=== PATIENT | male | born 1995 | race Caucasian/White ===

== ENCOUNTER 2020-10-31 21:33 | Emergency (ER) | payer OTHER, SELFPAY ==
--- NOTE | ~2020-10-31 | XR_ITS ---
EXAMINATION: CR HAND, RIGHT CLINICAL INFORMATION: Question foreign body. Question fracture of thumb. Focal soft tissue swelling of the thumb. COMPARISON: Right wrist films dated 08/05/2012 and 05/29/2012. TECHNIQUE: PA, lateral, and oblique views of the right hand. FINDINGS: There is prominent focal soft tissue swelling over the dorsum of the first interphalangeal joint. No underlying radiopaque foreign body is seen in the soft tissues and the bony structures are intact with no acute fracture, dislocation or significant degenerative change seen. There is an old ununited ulnar styloid fracture. Bony structures are otherwise unremarkable. XR/XR hand RT 2V IMPRESSION: Prominent soft tissue swelling over the first interphalangeal joint without radiopaque foreign body or acute fracture seen.
[2020-10-31 21:41] VITALS: BP 138/73; PULSE 84; RESP 16; TEMP 36.6; O2SAT 100; BMI 32.7
[2020-10-31] MEDS: Lidocaine HCl 1 % MPF 5 ML VIAL SUBCUT (22:43)
--- NOTE | 2020-10-31 22:51 | ED.WOUNDLAC ---
HPI - Wound/Laceration General Chief Complaint: Wound/Laceration Stated Complaint: fall Time Seen by Provider: 10/31/20 21:46 History of Present Illness HPI narrative: Patient is a 24-year-old male status post fall. Notice a laceration to the right IP thumb area. No head injury. No nausea no vomiting. No systemic complaints. Related Data Previous Rx's Medication Instructions Recorded ibuprofen 400 mg PO Q6H PRN #20 tab 10/31/20 Allergies Allergy/AdvReac Type Severity Reaction Status Date / Time nickel [NICKEL] Allergy Unknown UNKNOWN Unverified 04/15/20 16:32 nickel Allergy Unknown Uncoded 08/05/12 00:00 Review of Systems Review of Systems: Constitutional: No Weight loss, No Fever, No Chills, No Night Sweats, No Fatigue, No Malaise ENT/Mouth: No Hearing loss, No Ear Pain, No Nasal Congestion, No Sinus Pain, No Hoarseness, No sore throat, No Rhinorrhea, No Swallowing Difficulty Eyes: No Eye Pain, No Swelling, No Redness, No Foreign Body, No Discharge, No Vision Changes Cardiovascular: No Chest Pain, No SOB, No Dyspnea on Exertion, No Orthopnea, No Edema, No Palpitations Respiratory: No Cough, No Sputum, No Wheezing, No Smoke Exposure, No Dyspnea Gastrointestinal: No Nausea, No Vomiting, No Diarrhea, No Constipation, No abdominal Pain, No Hematochezia, No Melena Genitourinary: no irregular bleeding, No Dysuria, No Urinary Frequency, No Hematuria, No Urinary Incontinence, No Urgency, No Flank Pain, No Urinary Flow Changes, No Hesitancy Musculoskeletal: No joint pain, No Myalgias, No Joint Swelling Skin: Positive laceration to right thumb Neuro: No Weakness, No Numbness, No Paresthesias, No Loss of Consciousness, No Dizziness, No Headache Psych: No Anxiety/Panic, No Depression, No SI/HI/AH/VH, No Social Issues, Heme/Lymph: No Bruising, No Bleeding,No Lymphadenopathy Endocrine: No Polyuria, No Polydipsia, No Temperature Intolerance [facility] Past Medical History Medical History No active medical problems Social History Social History Advance Directives: No Advance Directives Information Provided: Yes Physical Exam Vital Signs: Vital Signs: Last Vital Signs Temp 97.9 F 10/31/20 21:41 Pulse 84 10/31/20 21:41 Resp 16 10/31/20 21:41 BP 138/73 10/31/20 21:41 Pulse Ox 100 10/31/20 21:41 Body Mass Index 32.7 Appearance: Alert. Oriented X3. No acute distress. Eyes: Pupils equal, round and reactive to light. ENT: Pharynx normal. Neck: Normal inspection. Neck supple. No lymph nodes noted. No crepitus CVS: Normal heart rate and rhythm. Pulses normal. Normal S1 and S2 Respiratory: No respiratory distress. Breath sounds normal. No Wheezing. No rales Abdomen: Soft and nontender. No rigidity. No distention. good BS x4 Skin: Positive laceration that is approximately 3 cm in size over the left thumb. No tendon laceration noted. Patient finger moved through the full range of motion. There is good flexion and extension at the IP joint. There is good opposition of the thumb noted. Extremities: No lower extremity edema. Neurovascular intact to all extremities. No Lacerations. No Rash Neuro: Oriented X 3. No motor deficit. No sensory deficit. Moving all extermities. No slurred speech Procedures Laceration Laceration 1: Site: upper extremity and hand (Positive 3 cm laceration to the antibiotic right thumb inter digit area on the dorsum side) Side (If applicable): right Description: linear Depth: simple, single layer Local Anesthetic: lidocaine 1% Pre-repair: wound explored and irrigated extensively Skin layer closed with: nylon Size (cm): 5-0 Number of sutures: 3 Technique: simple, interrupted Subcutaneous layer closed with: other (Nylon) Size: 5-0 MDM - Wound/Laceration MDM Narrative Medical decision making narrative: Last tetanus shot was 3 months ago. Patient wound was closed. Will discharge patient home. Suture removal in approximately 10 days. Patient's x-ray was grossly negative for any foreign bodies. No fracture noted. Discharge Plan Discharge Clinical Impression: Laceration, Sprain of finger Patient Disposition: Home, Self-Care Instructions: Finger Laceration (ED) Prescriptions: New ibuprofen 400 mg tablet 400 mg PO Q6H PRN (Reason: pain) Qty: 20 RF: 0 Referrals: Felder,Sindy Lomas MD [Emergency Provider] - 10 days Physician,None [Primary Care Provider] - 2 days
--- NOTE | 2020-10-31 23:04 | PC.NURSE ---
Thumb dresses per provider
== END 2020-10-31 23:05 | disposition home or self-care (01) ==
PROVIDERS: Emergency Provider Emergency Medicine Emergency Medical Services
DX: S61.011A Laceration without foreign body of right thumb without damage to nail, initial encounter (principal); S63.601A Unspecified sprain of right thumb, initial encounter; W01.0XXA Fall on same level from slipping, tripping and stumbling without subsequent striking against object, initial encounter; Y93.9 Activity, unspecified; Y92.9 Unspecified place or not applicable; Y99.9 Unspecified external cause status
CPT/HCPCS: 12002; 73120; 99284

== ENCOUNTER 2020-11-10 13:36 | Emergency (ER) | payer OTHER, SELFPAY ==
--- NOTE | 2020-11-10 14:57 | PC.NURSE ---
2ND CALL TO [facility], NOT IN [facility]
== END 2020-11-10 15:39 | disposition left against medical advice (07) ==
PROVIDERS: Emergency Provider Emergency Medicine
DX: Z48.02 Encounter for removal of sutures (principal)
CPT/HCPCS: 99281

== ENCOUNTER 2021-11-22 04:45 | Emergency (ER) | payer OTHER, SELFPAY ==
--- NOTE | ~2021-11-22 | CT_ITS ---
EXAMINATION: CT ABDOMEN AND PELVIS WITHOUT CONTRAST CLINICAL INFORMATION: Left lower abdominal pain going to left flank. COMPARISON: None TECHNIQUE: Multidetector volumetric imaging was performed from the superior aspect of the liver through the pubic symphysis. Sagittal and coronal reformatted images were obtained on the technologist's workstation. This CT examination was performed using dose optimization techniques as appropriate, variously including the following: *Automated exposure control *Adjustment of mA and/or kV according to patient size (this includes techniques or standardized protocols for targeted exams where dose is matched to indication/reason for exam; i.e. extremities or head) *Use of iterative reconstruction technique DLP: 611 mGy-cm FINDINGS: LUNG BASES: The visualized lung bases are unremarkable. LIVER, GALLBLADDER, AND BILIARY TREE: The liver is normal in size, shape, and attenuation. No focal hepatic lesion or biliary ductal dilatation is present. The gallbladder is unremarkable with no evidence of radiopaque gallstones, gallbladder wall thickening, or obvious pericholecystic inflammatory changes. PANCREAS: Unremarkable. SPLEEN: Unremarkable. ADRENAL GLANDS: Unremarkable. KIDNEYS AND URETERS: The kidneys are normal in appearance. No hydronephrosis or perinephric inflammatory changes. No urolithiasis. No ureterectasis. BLADDER: Physiologically decompressed. No bladder calculi. GASTROINTESTINAL TRACT: No colonic diverticulosis. Normal appendix. No free intraperitoneal fluid or gas collections. No intestinal dilatation or mural thickening. Normal sigmoid and small bowel mesentery is. ABDOMINAL WALL: No significant hernia is appreciated. LYMPH NODES: Normal. VASCULAR: Unremarkable. PELVIC VISCERA: Unremarkable. OSSEOUS STRUCTURES: Unremarkable. CT/CT abdomen pelvis wo con IMPRESSION: Unenhanced CT of abdomen and pelvis without evidence of acute abnormalities. No urolithiasis. No hydronephrosis or perinephric inflammatory changes. No diverticulosis. Normal appendix.
[2021-11-22 04:54] VITALS: BP 133/93; BP 137/90; PULSE 83; PULSE 86; RESP 18; TEMP 37.2; O2SAT 99; BMI 28.8
--- NOTE | 2021-11-22 05:04 | ED.ABDPAIN ---
HPI - Abdominal Pain General Chief Complaint: Abdominal Pain Stated Complaint: left side abd pain Time Seen by Provider: 11/22/21 05:04 Source: patient Mode of arrival: ambulatory Limitations: no limitations History of Present Illness HPI narrative: After having a BM, patient developed left lower abdominal pain now radiating into the back. Denies diarrhea, fever, no dysuria, no hematuria. Has had the pain but never saw a doctor for it. MD elicited complaint: abdominal pain Onset (ago): hour(s) Pain Consistency: constant Location: LUQ Quality: cramping and sharp Radiation: L flank Exacerbating factors: bowel movement Relieving factors: nothing Context: foreign travel Associated symptoms: nausea and vomiting Related Data Previous Rx's Medication Instructions Recorded ibuprofen 400 mg tablet 400 mg PO Q6H PRN #20 tab 10/31/20 naproxen 500 mg tablet (Naprosyn) 500 mg PO BID #20 tab 11/22/21 ondansetron 4 mg disintegrating 4 mg PO Q8H 4 Days #12 tab 11/22/21 tablet tamsulosin 0.4 mg capsule (Flomax) 0.4 mg PO DAILY #20 cap 11/22/21 Allergies Allergy/AdvReac Type Severity Reaction Status Date / Time nickel [NICKEL] Allergy Unknown UNKNOWN Unverified 04/15/20 16:32 nickel Allergy Unknown Uncoded 08/05/12 00:00 Review of Systems Constitutional: Reports no additional constitutional complaints Eyes: Reports no additional eye complaints Denies dizziness Cardiovascular: Reports no additional cardiovascular complaints Respiratory: Reports as per HPI Gastrointestinal: Reports no additional gastrointestinal complaints Musculoskeletal: Reports no additional musculoskeletal complaints Skin/Breast: Denies rash Reports system reviewed and no additional complaints, except as documented, Denies dizziness and Denies Sensory deficit (Neuro) Psychiatric: Denies anxiety COUNTS INCLUDE 234 BEDS AT THE [facility] Past Medical History Medical History No active medical problems Social History Social History Alcohol intake: unknown Advance Directives: No Physical Exam ED Vital Signs: Vital Signs - 24 hr 11/22/21 04:54 11/22/21 06:17 Temperature 98.9 F 98.7 F Pulse Rate 83 85 Respiratory Rate 18 19 Blood Pressure 137/90 H 124/72 Pulse Oximetry 99 99 BMI result Body Mass Index 28.8 Const Other: patient in pain General: healthy appearing Nutritional Appearance: average body habitus Orientation/consciousness: oriented to person and patient oriented x3 Limitations: no limitations HENMT Head: Yes normal to inspection Ears: external ears normal General nose exam: Normal external nose present Mouth: Normal oral and palatal mucosa present and oropharynx normal Throat: Yes posterior oropharynx normal Eyes General: appearance normal, both eyes and all related structures Neck Neck: Yes normal visual inspection Chest Chest palpation & inspection: normal inspection of the chest Resp Auscultation: clear to auscultation bilaterally Cardio Jugular venous distension: no JVD Rate: regular rate Rhythm: regular rhythm Heart sounds: S1 normal heart sound present and S2 normal heart sound present GI Inspection: Yes normal to inspection Palpation (GI): Soft to palpation, nontender and No hepatosplenomegaly present Auscultation: normal bowel sounds Back/Spine/Pelvis Other: left CVAT Skin General skin exam: no rashes or lesions noted Neuro General: oriented to person and patient oriented x3 Cranial nerves: Yes CN's II-XII intact bilaterally Motor exam (neuro): 5/5 motor strength present throughout Sensory Exam: No Sensory deficit (Neuro) Extrem General: Yes normal to inspection Psych Appearance: grossly normal Course Reevaluation(s) Reevaluation #1: patient with hematuria but no stone seen on CT. Will treat with NSAIDS, zofran and flomax. Impression is renal colic Time: 06:59 MDM - Abdominal Pain Lab Data Result diagrams: 11/22/21 05:36 11/22/21 05:36 Labs: Lab Results 11/22/21 11/22/21 11/22/21 Range/Units 05:25 05:36 05:36 WBC 6.8 (4.8-10.8) X10*3/uL RBC 5.25 (4.60-5.80) X10*6/uL Hgb 15.7 (14.0-18.0) g/dl Hct 45.6 (42.0-52.0) % MCV 86.9 (80.0-98.0) fL MCH 29.9 (27.0-33.0) pg MCHC 34.4 (31.0-36.0) g/dl RDW 12.9 (11.0-16.0) % Plt Count 213 (160-400) X10*3/uL MPV 9.2 L (9.4-12.4) fL Immature Gran % (Auto) 0.3 (0.0-0.4) % Neut % (Auto) 69.6 (45-73) % Lymph % (Auto) 19.1 L (20-40) % Boyle % (Auto) 8.8 (2-11) % Eos % (Auto) 1.8 (0-4) % Baso % (Auto) 0.4 (0-2) % Lymph # (Auto) 1.3 (1.2-4.9) X10*3/uL Boyle # (Auto) 0.6 (0.1-1.2) X10*3/uL Eos # (Auto) 0.1 (0.0-0.4) X10*3/uL Baso # (Auto) 0.0 (0.0-0.2) X10*3/uL Abs Immat Gran (auto) 0.02 (0.00-0.03) X10*3/uL Absolute Neuts (auto) 4.7 (2.0-8.3) x10*3/uL Absolute Nucleated RBC 0.000 (0.0-0.012) X10*3/uL Nucleated RBC % (auto) 0.0 (0.0-0.2) /100WBC Sodium 139 (135-145) mmol/L Potassium 4.0 (3.3-5.1) mmol/L Chloride 104 (96-108) mmol/L Carbon Dioxide 29 (22-29) mmol/L Anion Gap 10 L (12-20) BUN 17 H (9-16) mg/dL Creatinine 1.09 (0.5-1.4) mg/dL Estim Creat Clear Calc 114.0 Estimated GFR > 60 Random Glucose 116 H (60-115) mg/dL Calcium 9.5 (8.4-10.2) mg/dL Urine Color YELLOW Urine Appearance CLEAR Urine pH 5.5 (5.0-8.0) Ur Specific [place] >= 1.030 H (1.005-1.025) Urine Protein 1+ H (NEG-TRACE) MG/DL Urine Glucose (UA) NEG (NEG) MG/DL Urine Ketones NEG (NEG) MG/DL Urine Blood 3+ H (NEG) Urine Nitrite NEG (NEG) Ur Leukocyte Esterase NEG (NEG) Urine RBC 10-14 H (0) /HPF Urine WBC 1-4 (0-4) /HPF Ur Squamous Epith Cells 1+ /LPF Urine Bacteria 1+ /LPF Urine Mucus 1+ /LPF Discharge Plan Discharge Clinical Impression: Renal colic on left side Patient Disposition: Home, Self-Care Instructions: Renal Colic (ED) Prescriptions: New ondansetron 4 mg tablet,disintegrating 4 mg PO Q8H 4 Days Qty: 12 0RF naproxen [Naprosyn] 500 mg tablet 500 mg PO BID Qty: 20 0RF tamsulosin [Flomax] 0.4 mg capsule 0.4 mg PO DAILY Qty: 20 0RF No Action ibuprofen 400 mg tablet 400 mg PO Q6H PRN (Reason: pain) Qty: 20 0RF Referrals: Patrick Matthews MD [Physician] - 1 week
[2021-11-22 05:30] LABS: Appearance Urine CLEAR; Color Urine YELLOW; Glucose Urine UA NEG (NEG); Leukocyte Esterase Urine NEG (NEG); Nitrite Urine NEG (NEG); PH 5.5 (5.0-8.0); Specific Gravity - Urine >= 1.030 (1.005-1.025); UACC Culture Trigger NO; Urine Blood 3+ (NEG); Urine Ketones NEG (NEG); Urine Protein 1+ MG/DL (NEG-TRACE)
[2021-11-22 05:37] LABS: Bacteria Urine 1+ /LPF; Mucus Urine 1+ /LPF; Squamous Epithelial Cell Urine 1+ /LPF
[2021-11-22] MEDS: 0.9 % Sodium Chloride 1,000 ML 999 ML IVCONT ×2 (05:43→06:52)
[2021-11-22] MEDS: ondansetron HCL 4 MG/2 ML VIAL IVPUSH (05:44)
[2021-11-22] MEDS: Ketorolac Tromethamine 30 MG/ML VIAL IVPUSH (05:44)
[2021-11-22 05:46] LABS: MANUAL DIFF FLAG NO
[2021-11-22 05:48] LABS: Basophils Percent Auto 0.4 % (0-2); Eosinophils Absolute Auto 0.1 X10*3/uL (0.0-0.4); Eosinophils Percent Auto 1.8 % (0-4); Hematocrit 45.6 % (42.0-52.0); Hemoglobin 15.7 g/dl (14.0-18.0); Imm Gran Abs Auto 0.02 X10*3/uL (0.00-0.03); Imm Gran Pct Auto 0.3 % (0.0-0.4); Lymphocytes Absolute Auto 1.3 X10*3/uL (1.2-4.9); Lymphocytes Percent Auto 19.1 % (20-40); Mean Corpuscular HGB Conc 34.4 g/dl (31.0-36.0); Mean Corpuscular Hemoglobin 29.9 pg (27.0-33.0); Mean Corpuscular Volume 86.9 fL (80.0-98.0); Mean Platelet Volume 9.2 fL (9.4-12.4); Monocytes Absolute Auto 0.6 X10*3/uL (0.1-1.2); Monocytes Percent Auto 8.8 % (2-11); Neutrophils Absolute Auto 4.7 x10*3/uL (2.0-8.3); Neutrophils Percent Auto 69.6 % (45-73); Platelet Count 213 X10*3/uL (160-400); Red Blood Count 5.25 X10*6/uL (4.60-5.80); Red Cell Distribution Width 12.9 % (11.0-16.0); White Blood Count 6.8 X10*3/uL (4.8-10.8)
[2021-11-22 06:09] LABS: Anion Gap 10 (12-20); Blood Urea Nitrogen 17 mg/dL (9-16); Calcium 9.5 mg/dL (8.4-10.2); Carbon Dioxide 29 mmol/L (22-29); Chloride 104 mmol/L (96-108); Estimated Glomerular Filt Rate > 60; Glucose Random 116 mg/dL (60-115); Sodium 139 mmol/L (135-145)
[2021-11-22 06:17] VITALS: BP 124/72; PULSE 85; RESP 19; TEMP 37.1; O2SAT 99
== END 2021-11-22 07:10 | disposition home or self-care (01) ==
PROVIDERS: Emergency Provider Emergency Medicine
DX: N23 Unspecified renal colic (principal)
CPT/HCPCS: 36415; 74176; 80048; 81001; 85025; 96361; 96374; 96375; 99283; 99284; J1885; J2405

== ENCOUNTER 2022-06-15 16:39 | Emergency (ER) | payer OTHER, SELFPAY ==
--- NOTE | ~2022-06-15 | XR_ITS ---
EXAMINATION: X-RAY RIGHT HAND/WRIST CLINICAL INFORMATION: Injury/crush. COMPARISON: Radiograph of the right hand for 10/31/2020. TECHNIQUE: 3 views of the right hand/wrist. FINDINGS: No acute fracture or subluxation. Mild deformity of the head of the fifth metacarpal bone is unchanged compared to 10/31/2020. Carpal rows are maintained. There is soft tissue swelling along the dorsal surface of the hand at the level of the distal metacarpal bones, visualized on the lateral view. XR/XR hand wrist RT IMPRESSION: 1. Soft tissue swelling along the dorsal surface of the hand at the level of the distal metacarpal bones. 2. No acute fracture or subluxation.
[2022-06-15 16:44] VITALS: BP 137/96; PULSE 110; RESP 18; TEMP 37.3; O2SAT 98; BMI 32.5
--- NOTE | 2022-06-15 16:45 | ED.UPPEXIN ---
HPI - Extremity Injury (Upper) General Chief Complaint: Extremity Injury, Upper Stated Complaint: right hand inj Time Seen by Provider: 06/15/22 16:59 Related Data Previous Rx's Medication Instructions Recorded ibuprofen 400 mg tablet 400 mg PO Q6H PRN pain #20 tabs 10/31/20 naproxen 500 mg tablet (Naprosyn) 500 mg PO BID #20 tabs 11/22/21 ondansetron 4 mg disintegrating 4 mg PO Q8H 4 days #12 tabs 11/22/21 tablet tamsulosin 0.4 mg capsule (Flomax) 0.4 mg PO DAILY #20 caps 11/22/21 Allergies Allergy/AdvReac Type Severity Reaction Status Date / Time nickel [NICKEL] Allergy Unknown UNKNOWN Unverified 04/15/20 16:32 nickel Allergy Unknown Uncoded 08/05/12 00:00 [facility] Past Medical History Medical History No active medical problems Social History Social History Alcohol intake: unknown Advance Directives: No Advance Directives Information Provided: Yes Physical Exam Vital Signs: Vital Signs: Last Vital Signs Temp 99.1 F 06/15/22 16:44 Pulse 110 H 06/15/22 16:44 Resp 18 06/15/22 16:44 BP 137/96 H 06/15/22 16:44 Pulse Ox 98 06/15/22 16:44 BMI result Body Mass Index 32.5 Course Course Course Narrative: RME--26yo M c/o bilateral hand pain and abrasions > right s/p hands being trampled with football cleats while playing football [employer]. Last tetanus unknown +R hand with swelling and abrasions > unlar aspect. L hand with minimal swelling and abrasions XRs and TDap ordered in triage Medications Administered Discontinued Medications Generic Name Dose Route Start Last Admin Trade Name Freq PRN Reason Stop Dose Admin Diphtheria/Tetanus/Acell Pertussis 0.5 ml 06/15/22 16:45 06/15/22 17:20 Diphth,Pertus(Acell),Tet Adult 0.5 Ml Syringe IM 06/15/22 16:46 0.5 ml .ONCE ONE Administration Discharge Plan Discharge Clinical Impression: Hand pain, right, Abrasion Patient Disposition: Home, Self-Care Instructions: R.I.C.E. Treatment (ED), Bone Bruise (ED) Additional Instructions: Take your medications as prescribed. If you were prescribed antibiotics today, it is important that you take your medication to their entirety, do not skip any doses, do not finish them early. Follow-up with your primary care provider this week. Follow-up with orthopedics if pain persists or worsens, information below. Your x-ray. Normal however pain persists or worsens an MRI might be permitted to assess if tendons or ligaments were torn. Return to the emergency department with new or worsening symptoms. Such as fevers, chills, chest pain, shortness of breath, nausea, vomiting, dizziness, headache, vision changes, numbness, tingling, worsening pain, lethargy. In case of emergency call 911 For pain can take ibuprofen every 6 hours and Tylenol every 4 hours as needed. Do not sleep with a wrist splint on. XR/XR hand wrist RT IMPRESSION: 1.? Soft tissue swelling along the dorsal surface of the hand at the level of the distal metacarpal bones. 2.? No acute fracture or subluxation. Prescriptions: No Action ibuprofen 400 mg tablet 400 mg PO Q6H PRN (Reason: pain) Qty: 20 0RF ondansetron 4 mg tablet,disintegrating 4 mg PO Q8H 4 Days Qty: 12 0RF naproxen [Naprosyn] 500 mg tablet 500 mg PO BID Qty: 20 0RF tamsulosin [Flomax] 0.4 mg capsule 0.4 mg PO DAILY Qty: 20 0RF [place]: [facility] [place]Provider Group] - 1 week Physician,Unknown J [Primary Care Provider] - 2 days
--- NOTE | 2022-06-15 17:02 | ED_ITS ---
HPI - Extremity Problem General Chief complaint: Extremity Injury, Upper Stated complaint: right hand inj Time Seen by Provider: 06/15/22 16:59 History of Present Illness HPI Narrative: 26-year-old male no past pertinent medical history presents today to the emergency department with right hand swelling with lacerations after being stepped on while playing football. Tells me someone cleat stepped on his hand. Patient reports localized pain to the site. Tells me can move his wrist and fingers without difficulty. Injury happened just prior to arrival. Not up-to-date with tetanus shot. Reports intermittent numbness around knuckles on right hand. Denies tingling. Patient is right-hand dominant. MD Complaint: extremity swelling Related Data Previous Rx's Medication Instructions Recorded ibuprofen 400 mg tablet 400 mg PO Q6H PRN pain #20 tabs 10/31/20 naproxen 500 mg tablet (Naprosyn) 500 mg PO BID #20 tabs 11/22/21 ondansetron 4 mg disintegrating 4 mg PO Q8H 4 days #12 tabs 11/22/21 tablet tamsulosin 0.4 mg capsule (Flomax) 0.4 mg PO DAILY #20 caps 11/22/21 Allergies Allergy/AdvReac Type Severity Reaction Status Date / Time nickel [NICKEL] Allergy Unknown UNKNOWN Unverified 04/15/20 16:32 nickel Allergy Unknown Uncoded 08/05/12 00:00 Review of Systems Review of Systems: Constitutional : No Weight loss, No Fever, No Chills, No Fatigue, No Malaise ENT/Mouth : No sore throat, No Rhinorrhea Eyes: No Eye Pain, No Swelling, No Redness Cardiovascular : No Chest Pain, No SOB, No Dyspnea on Exertion, No Orthopnea, No Edema, No Palpitations Respiratory : No Cough, No Sputum, No Wheezing Gastrointestinal : No Nausea, No Vomiting, No Diarrhea, No Constipation, No abdominal Pain, No Hematochezia, No Melena Genitourinary : No Dysuria, No Urinary Frequency, No Hematuria, Musculoskeletal : + joint pain, No Myalgias, No Joint Swelling Skin : No Skin Lesions, No rash Neuro : No Weakness, No Numbness, No Dizziness, No Headache Psych : No Anxiety/Panic, No Depression All other systems reviewed and are negative Yes all other systems are reviewed and are negative [facility] Past Medical History Medical History No active medical problems Social History Social History Alcohol intake: unknown Advance Directives: No Advance Directives Information Provided: Yes Physical Exam Vital Signs: Vital Signs: Last Vital Signs Temp 99.1 F 06/15/22 16:44 Pulse 110 H 06/15/22 16:44 Resp 18 06/15/22 16:44 BP 137/96 H 06/15/22 16:44 Pulse Ox 98 06/15/22 16:44 BMI result Body Mass Index 32.5 vss Appearance: Alert.? Oriented X3.? No acute distress.? Head: Normocephalic, atraumatic, no step-offs or deformities Eyes: Pupils equal, round and reactive to light.? CVS: Normal heart rate and rhythm.? Pulses normal.? Respiratory: No respiratory distress.? Breath sounds normal.? Abdomen: Soft and nontender.? Skin: Skin warm and dry.? Normal skin color.? Normal skin turgor.? Extremities: No lower extremity edema.? No calf ttp. 5/5 strength to bilateral upper and lower extremities. Neurovascular intact to upper extremities. 2+ pulses throughout, including radial, equal bilateral. No wrist drop bilaterally. Cap refill less than 2 seconds bilaterally. Full range of motion bilaterally to upper extremities including bilateral digits and wrist. Superficial abrasions to right hand, no evidence of foreign bodies. No gross abnormalities or distracting injuries. Swelling to dorsal aspect of right hand . Neuro: Oriented X 3.? No motor deficit.? No sensory deficit. CN 2-12 intact Course Reevaluation(s) Reevaluation #1: X-ray reveals soft tissue swelling along the dorsal surface of the right hand at the level of the distal metacarpal bones. No acute fracture or subluxation of the right digits/hand. At this time plan is to discharge with a volar wrist splint and and provide with orthopedic follow-up. Patient can treat with RICE at home. Patient educated to return to the emergency department if worsening pain, wrist drop, of decreased range of motion, fever, or chills. Encouraged to follow-up with orthopedics and PCP after discharge. Time: 17:13 Medications Administered Discontinued Medications Generic Name Dose Route Start Last Admin Trade Name Freq PRN Reason Stop Dose Admin Diphtheria/Tetanus/Acell Pertussis 0.5 ml 06/15/22 16:45 06/15/22 17:20 Diphth,Pertus(Acell),Tet Adult 0.5 Ml Syringe IM 06/15/22 16:46 0.5 ml .ONCE ONE Administration MDM - Extremity (Nontraumatic) MDM Narrative Medical decision making narrative: 1710 26-year-old male presents today with right hand swelling with laceration after being stepped on. Not up-to-date on tetanus shot. Neurovascular intact to upper extremities. 2+ pulses throughout, including radial, equal bilateral. No wrist drop bilaterally. Cap refill less than 2 seconds bilaterally. Full range of motion bilaterally to upper extremities including bilateral digits and wrist. Superficial abrasions to right hand, no evidence of foreign bodies. No gross abnormalities or distracting injuries. Plan is imaging and tetanus updated. Medical Records Attestation: I reviewed the patient's medical records. Lab Data Attestation: I reviewed the patient's lab results. Critical Care Time Critical Care Time Critical Care Time: No Discharge Plan Discharge Clinical Impression: Hand pain, right, Abrasion Patient Disposition: Home, Self-Care Instructions: R.I.C.E. Treatment (ED), Bone Bruise (ED) Additional Instructions: Take your medications as prescribed. If you were prescribed antibiotics today, it is important that you take your medication to their entirety, do not skip any doses, do not finish them early. Follow-up with your primary care provider this week. Follow-up with orthopedics if pain persists or worsens, information below. Your x-ray. Normal however pain persists or worsens an MRI might be permitted to assess if tendons or ligam ents were torn. Return to the emergency department with new or worsening symptoms. Such as fevers, chills, chest pain, shortness of breath, nausea, vomiting, dizziness, headache, vision changes, numbness, tingling, worsening pain, lethargy. In case of emergency call 911 For pain can take ibuprofen every 6 hours and Tylenol every 4 hours as needed. Do not sleep with a wrist splint on. XR/XR hand wrist RT IMPRESSION: 1.? Soft tissue swelling along the dorsal surface of the hand at the level of the distal metacarpal bones. 2.? No acute fracture or subluxation. Prescriptions: No Action ibuprofen 400 mg tablet 400 mg PO Q6H PRN (Reason: pain) Qty: 20 0RF ondansetron 4 mg tablet,disintegrating 4 mg PO Q8H 4 Days Qty: 12 0RF naproxen [Naprosyn] 500 mg tablet 500 mg PO BID Qty: 20 0RF tamsulosin [Flomax] 0.4 mg capsule 0.4 mg PO DAILY Qty: 20 0RF Referrals: [facility] [place] [facility] [Provider Group] - 1 week Physician,Unknown J [Primary Care Provider] - 2 days
[2022-06-15] MEDS: Diphth,Pertus(ACell),Tet Adult 0.5 ML SYRINGE IM (17:20)
[2022-06-15] MEDS: Ketorolac Tromethamine 15 MG/ML VIAL 30 MG IM (17:51)
== END 2022-06-15 17:55 | disposition home or self-care (01) ==
PROVIDERS: Emergency Provider Emergency Medicine
DX: S60.511A Abrasion of right hand, initial encounter (principal); Y93.61 Activity, american tackle football; Y92.321 Football field as the place of occurrence of the external cause; Y99.9 Unspecified external cause status; Z79.899 Other long term (current) drug therapy
CPT/HCPCS: 73110; 73130; 90471; 90715; 96372; 99283; 99284; J1885